=== PATIENT | female | born 1980 | race Two or more races ===

== ENCOUNTER 2022-07-29 17:21 | Emergency (ER) | payer OTHER ==
[~2022-07-29] VITALS: Ht 152.4 cm; Wt 65.9 kg
[2022-07-29] MEDS ORDERED: OSELTAMIVIR 75 MG CAP PO ONE (23:15)
[2022-07-29] MEDS ORDERED: OSEL75CA5 PO (23:48)
[2022-07-30 00:28] VITALS: BP 129/64
== END 2022-07-30 00:22 | disposition home or self-care (01) ==
LOC: ER 17:21
DX: J10.1 Influenza due to other identified influenza virus with other respiratory manifestations (principal); Z20.822 Contact with and (suspected) exposure to COVID-19
CPT/HCPCS: 36415; 71045; 87426; 87804

== ENCOUNTER 2024-03-19 11:19 | Emergency (ER) | payer OTHER ==
[~2024-03-19] VITALS: Ht 154.9 cm; Wt 63.5 kg
[~2024-03-19 11:19] MED LIST: OSEL75CA5 PO
[2024-03-19 13:08] VITALS: TEMP 98.6
[2024-03-19 13:42] VITALS: BP 145/84; PULSE 81; RESP 18; O2SAT 97
[2024-03-19 14:30] LABS: Basophils # (auto) 0.1 10 ^3/uL (0-0.2); Basophils % (auto) 0.8 % (0.0-2.0); Eosinophils # (auto) 0.1 10 ^3/uL (0-0.8); Eosinophils % (auto) 0.5 % (0.0-7.0); Hematocrit 42.5 % (36.0-46.0); Hemoglobin 14.2 g/dL (12.2-16.2); Lymphocytes # (auto) 1.9 10 ^3/uL (0.4-5.4); Lymphocytes % (auto) 17.3 % (10.0-50.0); Mean Corpuscular Hemoglobin 28.3 pg (28.0-32.0); Mean Corpuscular Hgb Conc. 33.5 g/dL (32.0-36.0); Mean Corpuscular Volume 84.6 fL (80.0-100.0); Monocytes # (auto) 0.7 10 ^3/uL (0-1.3); Monocytes % (auto) 6.3 % (0.0-12.0); Neutrophils # (auto) 8.2 10 ^3/uL (1.6-8.6); Neutrophils % (auto) 75.1 % (37.0-80.0); Red Blood Cells 5.03 10^6/uL (4.0-5.20); Red Cell Distribution Width 13.9 % (11.8-14.3)
[2024-03-19 14:46] LABS: Alanine Aminotransferase 36 U/L (7-40); Albumin 4.4 g/dL (3.2-4.8); Alkaline Phosphatase 93 U/L (46-116); Anion Gap 5 (5-15); Aspartate Aminotransferase 20 U/L (13-40); BUN/Creatinine Ratio 11.3 (10.0-20.0); Blood Urea Nitrogen 8 mg/dL (9-23); Calcium 9.5 mg/dL (8.5-10.1); Carbon Dioxide 25 mmol/L (20-30); Chloride 109 mmol/L (98-107); Glucose 83 mg/dL (74-106); Potassium 4.1 mmol/L (3.5-5.1); Sodium 139 mmol/L (136-145)
[2024-03-19 14:47] LABS: Bilirubin, Total 0.3 mg/dL (0.2-1.0); Total Protein 7.5 g/dL (5.7-8.2)
[2024-03-19] MEDS ORDERED: HYDR25TA5 PO (15:09)
== END 2024-03-19 15:21 | disposition home or self-care (01) ==
LOC: ER 11:19
DX: I10 Essential (primary) hypertension (principal); R51.9 Headache, unspecified
CPT/HCPCS: 36415; 80053; 85025